=== PATIENT | female | born 1975 | race Caucasian/White ===

== ENCOUNTER 2023-03-12 00:44 | Emergency (ER) | payer MEDICAID ==
[~2023-03-12] VITALS: Ht 170.2 cm; Wt 90.7 kg
[2023-03-12 00:51] VITALS: BP_SYST 116
--- NOTE | 2023-03-12 00:51 | NUR ---
Patient triaged and placed in ER bed 7. Bed placed in lowest position and side rails up. Report given to SURYA FREEMAN for continuity of care. Instructed patient to notify ED staff for any changes in condition or worsening of symptoms while waiting to be seen by a provider. Patient verbalized understanding.
[2023-03-12] MEDS ORDERED: KETOROLAC TROMETHAMINE 60 MG/2 ML VIAL IM ONE (01:15)
--- NOTE | 2023-03-12 01:15 | NUR ---
Dr. SOFIA at bedside examining the patient.
[2023-03-12] MEDS ORDERED: IBUP-1971 PO (01:20)
[2023-03-12 01:51] VITALS: BP_SYST 114
--- NOTE | 2023-03-12 01:53 | NUR ---
Patient given written and verbal discharge instructions and verbalizes understanding. ER DR SOFIA discussed with patient the results and treatment provided. Patient in stable condition. ID arm band removed. Rx of MOTRIN given. Patient educated on pain management and to follow up with PMD. Pain Scale 2/10. Opportunity for questions provided and answered. Medication side effect fact sheet provided.
== END 2023-03-12 01:51 | disposition home or self-care (01) ==
LOC: SED 00:44
DX: M79.18 Myalgia, other site (principal); M79.661 Pain in right lower leg; Z79.899 Other long term (current) drug therapy
CPT/HCPCS: 99283; 96372; J1885

== ENCOUNTER 2023-07-10 01:00 | Emergency (ER) | payer MEDICAID ==
[~2023-07-10] VITALS: Ht 170.2 cm; Wt 99.8 kg
[~2023-07-10 01:00] MED LIST: IBUP-1971 PO
[2023-07-10 01:35] VITALS: BP_SYST 138; PULSE 84; RESP 18; TEMP 98.2; O2SAT 100
[2023-07-10] MEDS ORDERED: ZIT250 PO (04:50)
[2023-07-10 04:55] VITALS: BP_SYST 95; PULSE 66; RESP 18; TEMP 98.7; O2SAT 100
== END 2023-07-10 04:55 | disposition home or self-care (01) ==
LOC: SED 01:00
DX: J20.9 Acute bronchitis, unspecified (principal); R05.9 Cough, unspecified; F17.200 Nicotine dependence, unspecified, uncomplicated; Z79.899 Other long term (current) drug therapy
CPT/HCPCS: 71045; 99283

== ENCOUNTER 2023-09-24 09:15 | Emergency (ER) | payer MEDICAID ==
[~2023-09-24] VITALS: Ht 170.2 cm; Wt 99.8 kg
[~2023-09-24 09:15] MED LIST changes: +ZIT250 PO
[2023-09-24 09:19] VITALS: BP_SYST 121; PULSE 78; RESP 18; TEMP 98.3; O2SAT 98
[2023-09-24 09:48] LABS: BILIRUBIN,URINE NEGATIVE (NEGATIVE); BLOOD, URINE NEGATIVE (NEGATIVE); CLARITY/URINE CLEAR (CLEAR); COLOR,URINE YELLOW (YELLOW); GLUCOSE,URINE NEGATIVE (NEGATIVE); KETONES,URINE NEGATIVE (NEGATIVE); LEUKOCYTE ESTERASE ,URINE NEGATIVE (NEGATIVE); NITRITE, URINE NEGATIVE (NEGATIVE); PH,URINE 7.5 (5.0-8.0); PROTEIN URINE 1+ (NEGATIVE)
[2023-09-24 10:15] LABS: BACTERIA,URINE MODERATE /HPF (None Seen); RBC,URINE 0-3 /HPF (0-3); WBC,URINE 0-3 /HPF (0-3)
[2023-09-24 10:16] LABS: URINE AMORPHOUS PHOSPHATES 2+ /HPF (None Seen)
[2023-09-24] MEDS ORDERED: NITR-85 PO (10:23)
[2023-09-24 10:29] VITALS: BP_SYST 121; PULSE 78; RESP 18; TEMP 98.3; O2SAT 98
== END 2023-09-24 10:29 | disposition home or self-care (01) ==
LOC: SED 09:15
DX: N39.0 Urinary tract infection, site not specified (principal); R30.0 Dysuria; R39.15 Urgency of urination; R35.0 Frequency of micturition; Z79.899 Other long term (current) drug therapy
CPT/HCPCS: 81000; 81001; 81015; 81025; 87086; 99283

== ENCOUNTER 2023-10-31 09:30 | Emergency (ER) | payer MEDICAID ==
[~2023-10-31] VITALS: Ht 170.2 cm; Wt 104.3 kg
[~2023-10-31 09:30] MED LIST changes: +NITR-85 PO
[2023-10-31 09:33] VITALS: BP_SYST 130; PULSE 81; RESP 19; TEMP 98; O2SAT 99
== END 2023-10-31 11:20 | disposition home or self-care (01) ==
LOC: SED 09:30
DX: J06.9 Acute upper respiratory infection, unspecified (principal); R05.9 Cough, unspecified; Z79.899 Other long term (current) drug therapy
CPT/HCPCS: 71045; 99283